=== PATIENT | female | born 2005 | race Two or more races ===

== ENCOUNTER 2024-05-05 21:55 | Emergency (ER) | payer OTHER ==
[~2024-05-05] VITALS: Ht 165.1 cm; Wt 54.4 kg
[2024-05-06] MEDS ORDERED: KETOROLAC TROMETHAMINE 60 MG VIAL IM STA (03:54)
[2024-05-06] MEDS ORDERED: DEXAMETHASONE SODIUM PHOSPHATE 4 MG/ML VIAL IM STA (03:55)
[2024-05-06] MEDS ORDERED: DEXAMETHASONE SODIUM PHOSPHATE 4 MG/ML VIAL ONE (04:06)
[2024-05-06] MEDS ORDERED: KETOROLAC TROMETHAMINE 60 MG VIAL IM ONE (04:06)
== END 2024-05-06 04:38 | disposition home or self-care (01) ==
LOC: ER 21:58
DX: M94.0 Chondrocostal junction syndrome [Tietze] (principal)